=== PATIENT | female | born 1945 | race Caucasian/White ===

== ENCOUNTER 2021-08-27 10:23 | Outpatient (CLI) | payer MEDICARE, SELFPAY ==
[2021-08-27 11:09] LABS: Hematocrit 38.1 % (37.0-47.0); Hemoglobin 12.9 g/dL (12.0-15.0)
--- NOTE | 2021-08-27 11:09 | ECG_ITS ---
Measurements Intervals [place] Rate: 46 P: 60 [place]: 188 QRS: 7 QRSD: 86 T: 40 QT: 435 QTc: 382 Interpretive Statements SINUS BRADYCARDIA WITH SINUS ARRHYTHMIA CONSIDER INFERIOR INFARCT, AGE INDETERMINATE ABNORMAL ECG Electronically Signed On 08-27-2021 11:22:21 CDT by Raphael Pérez D.O.
[2021-08-27 11:19] LABS: Albumin Level 4.3 g/dL (3.5-5.1); Estimated Glomerular Filt Rate > 60
== END 2021-08-27 10:24 | disposition home or self-care (01) ==
PROVIDERS: PCP Family Medicine; Visit Provider Orthopaedic Surgery
DX: Z01.818 Encounter for other preprocedural examination (principal); M16.11 Unilateral primary osteoarthritis, right hip; R94.31 Abnormal electrocardiogram [ECG] [EKG]
CPT/HCPCS: 36415; 82040; 82565; 85014; 85018; 93005

== ENCOUNTER 2021-11-05 09:08 | Outpatient (CLI) | payer MEDICARE, SELFPAY ==
[2021-11-05 10:27] LABS: Basophils Percent Auto 0.3 % (0.2-1.2); Eosinophils Absolute Auto 0.2 K/mm3 (0-0.3); Eosinophils Percent Auto 2.7 % (0-4.4); Hematocrit 39.8 % (37.0-47.0); Hemoglobin 13.3 g/dL (12.0-15.0); Immature Granulocyte Absolute 0.02 K/mm3 (0.00-0.031); Immature Granulocyte Percent A 0.3 % (0-0.5); Lymphocytes Absolute Auto 1.81 K/mm3 (0.9-3.2); Lymphocytes Percent Auto 29.1 % (18.3-44.2); Mean Corpuscular HGB Conc 33.4 g/dl (32-36); Mean Corpuscular Hemoglobin 29.5 pg (26-34); Mean Corpuscular Volume 88.2 fl (80-100); Mean Platelet Volume 11.3 fl (7.4-10.4); Monocytes Absolute Auto 0.5 K/mm3 (0.1-0.6); Monocytes Percent Auto 8.2 % (2.6-8.5); Neutrophils Absolute Auto 3.7 K/mm3 (1.3-6.7); Neutrophils Percent Auto 59.4 % (45.5-73.1); Platelet Count Result 250 k/mm3 (150-375); Red Blood Count 4.51 M/mm3 (4.2-5.4); White Blood Count 6.2 K/mm3 (4.5-10.0)
[2021-11-05 10:38] LABS: Albumin Level 4.1 g/dL (3.5-5.1); Estimated Glomerular Filt Rate 54; Glucose 107 mg/dL (65-110)
[2021-11-05 10:41] LABS: Urine Cotinine NEGATIVE
[2021-11-05 10:45] LABS: Hemoglobin A1C 5.9 % (<5.7)
== END 2021-11-05 09:09 | disposition home or self-care (01) ==
LOC: ANHSURGERY 09:11
PROVIDERS: PCP Family Medicine; Visit Provider Orthopaedic Surgery
DX: Z01.812 Encounter for preprocedural laboratory examination (principal); M16.11 Unilateral primary osteoarthritis, right hip
CPT/HCPCS: 80307; 82040; 82565; 82947; 83036; 85025; 87081

== ENCOUNTER 2021-11-30 00:04 | Day surgery (SDC) | payer MEDICARE, SELFPAY ==
[2021-11-05 09:22] VITALS: BMI 33.0
--- NOTE | 2021-11-05 09:51 | PC.NURSE ---
Report to the Outpatient Waiting Room, entrance under the green pavilion located off [facility], at time _0930 on date 11/30/21 . OR Time: _1130 . - You and your visitor will be asked a series of questions to screen for COVID 19 for your protection. - A mask is required within the hospital. - Only one visitor is allowed at this time. Patient visitors will be guided where to wait when not with patient. Preoperative COVID Testing Requirements: No COVID Test needed if: (proof is required; if not received patient will have Rapid Test prior to entry) - Patient has received COVID Vaccine at least 14 days prior to procedure date or - Patient has positive COVID test result within last 90 days of surgery date. COVID Test needed if above criteria is not met If not COVID vaccinated a COVID test must be conducted within 72 hours of surgery and patient is asked to isolate self from time of testing until procedure. You will go to the [facility] for your COVID testing. The [facility] site is located at the corner of [address] [facility]. You will only be called if COVID results are positive and your surgeon may reschedule your elective surgery date. Patients may have clear liquids (water, carbonated beverages, clear teas, apple juice) until 3 hours prior to surgery with a maximum of 20 ounces. - No food from midnight until time of surgery - Infants may have breast milk until 4 hours before surgery, formula 6 hours prior to surgery. - Children will be allowed to drink immediately following surgery. If applicable, please bring a bottle or sippy cup to assist with drinking. Juice, water, soda, and popsicles are readily available. For infants on formula, please bring formula the day of surgery. Pacifiers are allowed. Take the following medications with a SIP of water the morning of surgery: __NIFEDIPINE,FLUOXETINE Medications to discontinue per physician ____NONE Date to take last dose Please no make-up, nail montserratian, hairspray, perfume, deodorant, or body powder the day of surgery. No jewelry (including any body piercings) or valuables the day of surgery, leave them at home. Please take a shower or bath the night before, or the morning of, surgery with an antibacterial soap. Wear comfortable, loose fitting clothing. Children are encouraged to wear pajamas. - Jewelry must be removed prior to entering the operating room. Rings and piercings that are not removed may be cut off. - The hospital will not accept responsibility for valuables. - Please leave all valuables, including medications, at home the day of surgery. If you are going home after surgery, a licensed local flatbed driver must drive you home. - NO public transportation without another adult. - We recommend that an adult stay with you for 24 hours following discharge. - We also recommend that you do not drive, make important decision, drink alcoholic beverages, or take any drugs that were not prescribed by your health care provider for at least 24 hours after your discharge time. For Pediatric surgeries, we recommend two adults accompany the child home (only one inside the building at this time). Follow any additional instructions given to you from your surge instructions given to __PATIENT and asked if any additional questions and then verbalized understanding. Patient advised to call surgeon office or pre surgery nurse liaison [phone] if any additional questions.
[2021-11-05 10:09] VITALS: BP 142/51; PULSE 63; RESP 16; TEMP 36.7; O2SAT 98
[2021-11-30] VITALS (13 sets, daily range): BP systolic 98–146; BP diastolic 42–89; PULSE 50–63; RESP 12–20; TEMP 36.1–36.9; O2SAT 86–100
--- NOTE | ~2021-11-30 | XR_ITS ---
EXAMINATION: XR hip RT min 2V DATE: 11/30/2021 13:56 INDICATION: Right hip arthroplasty. Postop. TECHNIQUE: 2 views of right hip were obtained. COMPARISON: Right hip radiographs 07/14/2021 FINDINGS: There is a total right hip arthroplasty in near-anatomic alignment. No fracture. There is g as in the soft tissues, consistent with recent surgery. IMPRESSION: 1. Total right hip arthroplasty in near-anatomic alignment. Reviewed, dictated and finalized at location B. ENTICE INSTRUMENT TECHNICIAN
--- NOTE | 2021-11-30 06:49 | WPDANESEPPF ---
Anes - Initial Pre Proc Eval Procedure: Operation Date: 11/30/21 11:30 Proposed Procedures p Right Total Hip Arthroplasty - Cole Cardona MD Date/Time: 11/30/21 06:49 Surgeon: Cole Cardona MD Pre Op Diagnosis: Prim O.A. Right Hip Patient Data Age: 76 Gender: F Height: 1.7 m Weight: 95.8 kg Last Vital Signs Temp 36.7 C 11/05/21 10:09 Pulse 63 11/05/21 10:09 Resp 16 11/05/21 10:09 BP 142/51 H 11/05/21 10:09 Pulse Ox 98 11/05/21 10:09 Allergies Allergy/AdvReac Type Severity Reaction Status Date / Time Antihistamines - Alkylamine Allergy Mild heart Verified 11/30/21 09:30 palpitations cefaclor AdvReac Mild Nausea Verified 11/30/21 09:30 ciprofloxacin AdvReac Mild Nausea Verified 11/30/21 09:30 Home Medications Medication Instructions Recorded Confirmed Type cetirizine 10 mg tablet 10 mg PO DAILY PRN 07/01/21 11/30/21 History fluoxetine 10 mg capsule 10 mg PO DAILY 07/01/21 11/30/21 History nifedipine 30 mg tablet,extended 30 mg PO DAILY 07/01/21 11/30/21 History release 24 hr omeprazole 40 mg capsule,delayed 40 mg PO DAILY 07/01/21 11/30/21 History release trazodone 50 mg tablet 50 mg PO QHS PRN 07/01/21 11/30/21 History acetaminophen 650 mg PO Q6H PRN 11/05/21 11/30/21 History oxybutynin chloride 10 mg 15 mg PO DAILY tablet 11/17/21 11/30/21 History tablet,extended release 24 hr Patient hx anesthesia problems: none Family hx anesthesia problems: none Results Review: All pre-operative results and documents have been reviewed as part of the pre-operative evaluation. [facility] Past Medical History Medical History (Updated 11/30/21 @ 06:49 by Elias Gallego DO) Acute cystitis with hematuria Acute maxillary sinusitis GERD (gastroesophageal reflux disease) History of ankle fracture History of elevated glucose Rt. Knee History of kidney disease Hx of manic depressive disorder Chronic Hyperlipidemia Hypertension Surgical History Surgical History History of shoulder surgery (~06/2018) Family History Family History Father Cancer Mother Heart disease Arthritis Social History Social History Additional smoking assessment comments: DENIES ANY FORM OF TOBACCO USE Alcohol intake: never Substance use: never Living arrangements: with family Spiritual care concerns: No Anes - Eval Final PreProcedure Day of Procedure 11/30/21 06:49 Patient weight: obese Heart: regular rate and rhythm Lungs: clear to auscultation and normal air movement Airway: Mallampati scale class II Neurological: alert and oriented Last oral intake: >/= 8 hours ASA classification: III Emergent: no Anesthetic plan: proceed Anesthesia type and monitoring: general ETT and standard monitoring Results Review: All pre-operative results and documents have been reviewed as part of the pre-operative evaluation. Informed Consent: The patient's anesthetic plan and its attendant risks and benefits were discussed with the patient/family/POA. Questions were solicited and answers provided to the satisfaction of the patient/family/POA.
--- NOTE | 2021-11-30 08:08 | WPDHPUPDATE1 ---
History and Physical Update Update Date/Time: 11/30/21 08:08 History and Physical has been reviewed, including an updated exam of the patient. There are NO changes in the patient's condition. Risks, benefits, and alternatives have been discussed and questions answered. Patient agrees to proceed with procedure.
[2021-11-30] MEDS: LACTATED RINGERS 1,000 ML 30 ML IV CONT ×2 (10:08→13:38)
[2021-11-30] MEDS: ACETAMINOPHEN 500 MG TABLET 1000 MG PO (10:08)
[2021-11-30] MEDS: TRANEXAMIC ACID 1,000MG/ISO100 1,000 MG/100 ML BAG 200 MG IVPB (11:03)
[2021-11-30] MEDS: ceFAZolin 2 GM/D5W 50 ML 2 GM/50 ML BAG IVPB ×2 (11:22→18:42)
[2021-11-30] MEDS: fentaNYL CITRATE INJ (*CRX) 100 MCG/2 ML VIAL 25 MCG IV PUSH ×6 (14:21→15:00)
--- NOTE | 2021-11-30 14:40 | SUR.PHASEI ---
1420; PT STATES IF PAIN/BURNING DOESNT IMPROVED SHE WANTS TO STAY OVERNIGHT IN THE HOSPITAL. 1440; SON NOTIFIED OF PT'S DESIRE TO STAY
--- NOTE | 2021-11-30 14:45 | SUR.PHASEI ---
SPOKE WITH DR BLAND, HE PLANS TO KEEP PT OVERNIGHT
--- NOTE | 2021-11-30 15:16 | W.PM.PROC2 ---
Procedure Note - Detailed Date of Procedure 11/30/21 Pre-op Diagnosis Osteoarthritis right hip Post-op Diagnosis same Procedure Performed Right Total Hip Arthroplasty Surgeon Cole Cardona MD Back Winder Terese Stockton PA-C Anesthesia general Description of Procedure The patient was given preoperative antibiotics. A general anesthetic was administered. The patient was carefully placed in the lateral decubitus position on the PEG board. The shoulders and hips were carefully positioned for component and leg length positioning reference. The hip was prepped and draped in the usual sterile fashion. A longitudinal incision was created over the posterior aspect of the greater trochanter. Careful dissection was brought down through the deep fascia with electrocautery. A minimally invasive optimized posterior approach to the hip was performed. The short external rotators and capsule were taken down in an L-shaped capsulotomy. The tissue was tagged for later repair using number 2 high strength suture. The femoral neck was measured and taken in situ. The femoral head was removed. The acetabulum was carefully exposed. The inferior capsule was released. The labrum was resected. The acetabulum was sequentially reamed to the intended cup size. The cup was impacted into position with excellent press-fit. Typical anatomic landmarks, including the bony contact points as well as the inferior transverse acetabular ligament were used to confirm cup positioning with preoperative templating. Attention was turned to the femur, which was carefully exposed. The hip was reamed and then broached sequentially. Excellent press-fit was obtained with the broach. The hip was trialed. Measurements were utilized, including the lesser trochanter as well as the center of the femoral head and the tip of the trochanter, and excellent assessment of the offset and leg lengths were confirmed. The real component was impacted into position. Trialing confirmed appropriate leg length and offset with soft tissue balancing as well apparent feel of the leg, both at the knee and the heel. Soft tissues were assessed using the the iliotibial band. Reduction of the posterior capsule and external rotators were also used as a secondary assessment. The hip was copiously irrigated with pulsatile lavage antibiotic solution periodically throughout the procedure. The real components were then assembled and reduced. The hip was stable throughout typical maneuvers, including extension, external rotation to 70 degrees, the position of sleep as well as flexion to 90 degrees with internal rotation past 45 degrees. The shake test confirmed stability without impingement. Osteophytes were removed as necessary. The short external rotators and capsule were repaired back to the posterior trochanter through drill holes. The deep fascia was repaired with running number 2 Quill suture, followed by 0 Stratafix suture and 2-0 Stratafix suture in the dermis. Steri-Strips were placed on the skin, followed by a sterile silver occlusive dressing. There were no complications. Meticulous hemostasis was maintained with the AquaMantys device. The patient was brought to the recovery room in stable condition. There were no complications. Physician optometric assistant, Terese Stockton PA-C, required for surgery; including patient positioning, draping, tissue retraction, maintaining instrument position, hip dislocation and relocation, wound closure, and dressing placement. Implants The Accolade II hip stem, 127 degree size 4 , was utilized with excellent press-fit. The 52 mm Trident II acetabular component was impacted with excellent press-fit stability. 10 degree acetabular polyethylene liner. The 2.5 , 36 mm Biolox ceramic femoral head was utilized. Estimated Blood Loss -200.0 Drains No Packing No Pathology none sent Complications No immediate complications Condition stable Disposition PACU
--- NOTE | 2021-11-30 17:08 | ADMGEN ---
This patient, Tanya Gonzales, was admitted to [facility]-. Patient/family oriented to hospital policies and general routines including ID bracelet, bed and alarms, visiting hours, pain management, procedures, bathroom and other care routines, personal items, smoking policy, room service/diet, and visiting hours. Information on how to activate the Rapid Response Team has been discussed. Patient/Family are encouraged to report perceived risks to care and to ask questions if they do not understand what they are told or what they should do.
[2021-11-30] MEDS: oxyCODONE HCL (*CRX) 5 MG TAB IR 10 MG PO (18:35)
--- NOTE | 2021-11-30 19:55 | PC.NURSE ---
CORRECTION: PATIENT ON 2 LITERS OXYGEN AT 1845 FOR SATS 86% ON ROOM AIR WHEN SHE FELL ASLEEP. SON CALLED HERE AND WAS UPDATED.
[2021-11-30] MEDS: PANTOPRAZOLE 40 MG TABLET PO (21:25)
[2021-11-30] MEDS: oxyCODONE HCL (*CRX) 5 MG TAB IR PO (22:36)
[2021-12-01 02:00] VITALS: RESP 20
[2021-12-01] MEDS: ceFAZolin 2 GM/D5W 50 ML 2 GM/50 ML BAG IVPB (03:00)
[2021-12-01] MEDS: ONDANSETRON INJ 4 MG/2 ML VIAL IV PUSH (03:17)
[2021-12-01] MEDS: SODIUM CHLORIDE 0.9% IV 1,000 ML 125 ML IV CONT (03:18)
[2021-12-01] MEDS: oxyCODONE HCL (*CRX) 5 MG TAB IR PO (04:35)
[2021-12-01 05:00] VITALS: RESP 20
[2021-12-01 06:25] VITALS: BP 122/47; PULSE 64; RESP 20; O2SAT 99
--- NOTE | 2021-12-01 07:21 | WPDANESPN ---
Anes - Prog Note Post-Op Date/Time: 12/01/21 07:21 Cardiovascular status: normal Respiratory status: normal Airway patency: baseline Mental status: baseline Post-Op hydration status: normal Vital Signs: Last Vital Signs Temp 98.4 F 11/30/21 15:21 Pulse 64 12/01/21 06:25 Resp 20 12/01/21 06:25 BP 122/47 L 12/01/21 06:25 Pulse Ox 99 12/01/21 06:25 Pain Score (VAS): 11/29 I/O: Intake & Output 11/30/21 11/30/21 12/01/21 15:59 23:59 07:59 Intake Total 250 150 150 Output Total 250 Balance 250 -100 150 11/30/21 10:00 Blood Type B Positive Antibody Screen Negative Post-procedural complaints: none Patient Feedback: Patient satisfied with anesthetic care.
[2021-12-01] MEDS: FLUoxetine HCL 10 MG CAPSULE PO (10:04)
[2021-12-01] MEDS: polyethylene glycoL 3350 17 GM POWD.PACK PO (10:04)
[2021-12-01] MEDS: SENNA/DOCUSATE SODIUM TABLET 2 TAB PO (10:05)
[2021-12-01] MEDS: ASPIRIN 81 MG ENTERIC TABLET PO (10:08)
--- NOTE | 2021-12-01 12:27 | P.DS_ITS ---
DS: Admitting Diagnosis Discharge Date 12/01/21 Admitting Diagnosis OA Right hip DS: Discharge Diagnosis Discharge Diagnosis (1) Status post total hip replacement, right: Code(s): Z96.641 - Presence of right artificial hip joint Status: Acute Assessment and Plan: Postop day 1: Right Total hip arthroplasty. Patient tolerated procedure well. No complications. She did have some orthostatic hypotension this AM. Improved after eating and fluids. Pain manageable with pain medication. No numbness or tingling. We had a lengthy discussion regarding postoperative wound care, limitations, expectations, and exercises. Patient shows good understanding. Patient has had initial physical therapy and is tolerating it well. DVT prophylaxis: 81 mg baby aspirin b.i.d. for 14 days. Short frequent walks. Pain medication: Percocet. Meloxicam. Prednisone. Patient has followup appointment with Dr. Cardona in 3 weeks DS: Summary Hospital Course Reason for hospitalization: Total hip arthroplasty Hospital Course: Patient tolerated procedure well. Has had initial PT/OT and made good progress. Status at Discharge Functional status at discharge: uses cane/walker Overall status at discharge: patient is progressing back to baseline Time Spent with Patient Time attestation: Total time spent providing and/or coordinating discharge services: Exam Narrative: Overweight 76 y/o female. Resting comfortably in bed. Wearing compression socks bilaterally. Dressing dry and intact with no drainage. Mild swelling. Mild ecchymosis. No erythema. No hematoma. Range of motion limited due to pain. Calf nontender. Thigh nontender. Neurologic status intact. No varicosities. Distal pulses palpable. Discharge Plan Discharge Patient Disposition: Home, Self-Care Discharge Instructions: See instruction sheet Stand Alone Forms: General Discharge Instructions Follow-up/Referrals: Terese Stockton PA [Physician Can Closing Machine Tender] - Discharge Medications: New meloxicam 15 mg tablet 15 mg PO DAILY Qty: 30 RF: 0 aspirin 81 mg tablet,delayed release (DR/EC) 81 mg PO BID 14 Days Qty: 28 RF: 0 oxycodone-acetaminophen 5-325 mg tablet 1 - 2 tablet PO Q4-6H MDD 6 PRN (Reason: pain) Qty: 30 RF: 0 prednisone 5 mg tablet 5 mg PO DAILY 21 Days Qty: 21 RF: 0 Continued cetirizine 10 mg tablet 10 mg PO DAILY PRN (Reason: Allergy Symptoms) RF: 0 fluoxetine 10 mg capsule 10 mg PO DAILY RF: 0 nifedipine 30 mg tablet extended release 24hr 30 mg PO DAILY RF: 0 omeprazole 40 mg capsule,delayed release(DR/EC) 40 mg PO DAILY RF: 0 trazodone 50 mg tablet 50 mg PO QHS PRN (Reason: Sleep) RF: 0 oxybutynin chloride 10 mg tablet extended release 24hr 15 mg PO DAILY RF: 0 Held acetaminophen 650 mg Tablet 650 mg PO Q6H PRN (Reason: Pain) RF: 0 Hold Instructions: Resume on 12/15/21. Hold while taking Percoct regularly. No more than 3,000-4,000 mg Tylenol in a 24 hour period.
== END 2021-12-01 13:10 | disposition home or self-care (01) ==
LOC: ANHSURGERY 09:13 → ANHSUROVER 15:22
PROVIDERS: PCP Family Medicine; Visit Provider Orthopaedic Surgery
PROC: (CPT 27130; principal; 2021-11-30 11:30)
DX: M16.11 Unilateral primary osteoarthritis, right hip (principal); I10 Essential (primary) hypertension; E78.5 Hyperlipidemia, unspecified; K21.9 Gastro-esophageal reflux disease without esophagitis; F31.9 Bipolar disorder, unspecified; E66.9 Obesity, unspecified; Z68.32 Body mass index [BMI] 32.0-32.9, adult
CPT/HCPCS: 27130; 36415; 73502; 80307; 82040; 82565; 82947; 83036; 85025; 86850; 86900; 86901; 87081; 97110; 97116; 97161; 97165; 97535; A9270; C1776; J0131; J0171; J0690; J1100; J1170; J1885; J2250; J2270; J2370; J2405; J2704; J2710; J2795; J3010; J7030; J7120